=== PATIENT | female | born 1990 | race Caucasian/White ===

== ENCOUNTER 2016-06-14 09:13 | Outpatient (CLI) ==
[2016-03-05 21:27] VITALS: BMI 21.9
== END 2016-06-14 09:14 | disposition home or self-care (01) ==
LOC: LAB 09:13
PROVIDERS: ATTEND Emergency Medicine
DX: O20.0 Threatened abortion (principal)
CPT/HCPCS: 36415; 84702

== ENCOUNTER 2016-07-13 14:10 | Outpatient (CLI) ==
[2016-03-05 21:27] VITALS: BMI 21.9
== END 2016-07-13 14:11 | disposition home or self-care (01) ==
LOC: LAB 14:10
PROVIDERS: ATTEND Emergency Medicine
DX: J02.9 Acute pharyngitis, unspecified (principal)
CPT/HCPCS: 87651; 87880

== ENCOUNTER 2016-07-21 04:24 | Emergency (ER) ==
[2016-07-21 04:36] VITALS: BP 109/73; TEMP 98.4; BMI 22.6
--- NOTE | 2016-07-21 05:10 | ED.PDOC ---
General ED Provider: Dr. CAROL MENDOZA Chief Complaint: Respiratory Complaint Stated Complaint: sinus draiange, coughing, congestion, took z pack, still has problem,. in . Time Seen by Physician: 05:08 Mode of Arrival: Walk-In Information Source: Patient Primary Care Provider: GUSTAVO ALMANZA Nursing and Triage Documentation Reviewed and Agree: Yes Respiratory Complaint Exam - Respiratory Complaint/Exam Symptoms Are: Still present Timing: Constant Initial Severity: Mild Current Severity: Mild Location: Nose, Chest Character: Reports: Productive cough Aggravating: Reports: Allergens, URI Alleviating: Reports: None Associated Signs and Symptoms: Reports: URI, Nasal congestion, Sinus discomfort. Denies: Rapid breathing, Dyspnea, Fever, Chills, Chest pain, Pleuritic chest pain, Wheezing, Hemoptysis, Dizziness, Calf pain, Calf swelling , Edema, Hoarseness, Vomiting, Sore throat, Weight loss, Decreased oral intake, Increased thirst, Increased appetite, Increased urination Related History: Reports: Similar episode History of Healthcare-Acquired Pneumonia: No Related Surgical History: Reports: None Pulmonary Embolism Risk Factors: None Cardiac Risk Factors: Reports: None Pseudomonas Risk Factors: Reports: None Tuberculosis Risk Factors: Reports: None Status Asthmaticus Risk Factors: Reports: None Home Oxygen Use: No Recent Stress Test: No Recent Echo/LV Function: No Current Antibiotic Use: No Current Asthma Medication Use: No Respiratory Distress: None Inadequate Respiratory Effort: No Dysphagia Present: No JVD Present: No Retractions: Not Present Differential Diagnoses: URI Review of Systems - Review Of Systems Constitutional: Reports: Malaise, Weakness Eyes: Reports: No symptoms Ears, Nose, Mouth, Throat: Reports: Nose discharge Respiratory: Reports: Cough Cardiac: Reports: No symptoms GI: Reports: No symptoms : Reports: No symptoms Musculoskeletal: Reports: No symptoms Skin: Reports: No symptoms Neurological: Reports: No symptoms Endocrine: Reports: No symptoms Hematologic/Lymphatic: Reports: No symptoms All Other Systems: Reviewed and Negative Past Medical History - Past Medical History Previously Healthy: Yes Endocrine: Reports: None Cardiovascular: Reports: None Respiratory: Reports: None Hematological: Reports: None Gastrointestinal: Reports: None Genitourinary: Reports: UTI Neuro/Psych: Reports: None Musculoskeletal: Reports: None Cancer: Reports: None Last Menstrual Period: APRIL - Surgical History General Surgical History: Reports: Cholecystectomy - Family History Family History: Reports: Unknown - Social History Smoking Status: Current every day smoker, Heavy tobacco smoker Hx Substance Use: Yes (IN THE PAST) Alcohol Screening: None - Immunizations Tetanus Shot up to Date: Yes Physical Exam - Physical Exam Appearance: Well-appearing, No pain distress, Well-nourished Eyes: BENSON, EOMI, Conjunctiva clear ENT: Ears normal, Nose normal, Oropharynx normal Respiratory: Airway patent, Breath sounds clear, Breath sounds equal, Respirations nonlabored Cardiovascular: RRR, Pulses normal, No rub, No murmur GI/: Soft, Nontender, No masses, Bowel sounds normal, No Organomegaly Musculoskeletal: Normal strength, ROM intact, No edema, No calf tenderness Skin: Warm, Dry, Normal color Neurological: Sensation intact, Motor intact, Reflexes intact, Cranial nerves intact, Alert, Oriented Psychiatric: Affect appropriate, Mood appropriate Critical Care Note - Critical Care Note Total Time (mins): 0 Course - Course Vital Signs: Temp Pulse Resp BP Pulse Ox 07/21/16 04:28 98.4 F 80 20 109/73 99 Departure - Departure Time of Disposition: 05:12 Disposition: HOME SELF-CARE Discharge Problem: URTI (acute upper respiratory infection) Instructions: Upper Respiratory Infection (ED) Condition: Stable Pt referred to PMD for follow-up: No Additional Instructions: Increase hydration Claritin 10 po daily continue taking prenatals. Prescriptions: Loratadine [Claritin] 10 mg PO DAILY #10 tablet Allergies/Adverse Reactions: Allergies amoxicillin [Amoxicillin] Adverse Reaction (Verified 04/19/15 03:41) Home Medications: Ambulatory Orders Acetaminophen with Codeine [Tylenol #3 Tab] 1 tab PO BID PRN 07/21/16 Loratadine [Claritin] 10 mg PO DAILY #10 tablet 07/21/16 Vit W-Ca,Fe,FA(<1 mg) [ Vitamins] 1 each PO DAILY 07/21/16 Disposition Discussed With: Patient
[2016-07-21] MEDS ORDERED: CLARITIN PO ONE (05:30)
== END 2016-07-21 05:46 | disposition home or self-care (01) ==
LOC: ED 04:24
DX: J06.9 Acute upper respiratory infection, unspecified (principal); F17.210 Nicotine dependence, cigarettes, uncomplicated; Z33.1 Pregnant state, incidental
CPT/HCPCS: 99282

== ENCOUNTER 2016-10-01 15:36 | Emergency (ER) ==
[2016-10-01 15:50] VITALS: BP 100/67; TEMP 97.6; BMI 23.5
[2016-10-01] MEDS ORDERED: CITRATE OF MAGNESIA PO STA (15:56)
[2016-10-01] MEDS ORDERED: GLYCERIN SUPPOSITORY RC STA (15:58)
--- NOTE | 2016-10-01 16:00 | ED.PDOC ---
General ED Provider: Dr. CAROL MENDOZA Chief Complaint: Constipation Stated Complaint: Not had BM for 5 days, she is . Time Seen by Physician: 15:56 Mode of Arrival: Walk-In Information Source: Patient Primary Care Provider: GUSTAVO ALMANZA Nursing and Triage Documentation Reviewed and Agree: Yes GI Complaint Exam - Abdominal Pain Complaint/Exam Onset: Gradual (did not had BM for 5 days.) Symptoms Are: Still present Timing: Constant Initial Severity: Mild Current Severity: Mild Location of Pain: Diffuse Character: Reports: Aching Aggravating: Reports: None Alleviating: Reports: None Associated Signs and Symptoms: Reports: Constipation AAA Risk Factors: Reports: None Cardiac Risk Factors: Reports: None Ectopic Risk Factors: Reports: None Ovarian Torsion Risk Factors: Reports: None Surgical Obstruction Risk Factors: Reports: None Related Surgical History: Reports: None Patient Rh Status: Unknown Abdominal Findings: Present: None Differential Diagnoses: Constipation Review of Systems - Review Of Systems Constitutional: Reports: No symptoms Eyes: Reports: No symptoms Ears, Nose, Mouth, Throat: Reports: No symptoms Respiratory: Reports: No symptoms Cardiac: Reports: No symptoms GI: Reports: Abdominal pain (constipation) : Reports: No symptoms Musculoskeletal: Reports: No symptoms Skin: Reports: No symptoms Neurological: Reports: No symptoms Endocrine: Reports: No symptoms Hematologic/Lymphatic: Reports: No symptoms All Other Systems: Reviewed and Negative Past Medical History - Past Medical History Previously Healthy: Yes Endocrine: Reports: None Cardiovascular: Reports: None Respiratory: Reports: None Hematological: Reports: None Gastrointestinal: Reports: None Genitourinary: Reports: UTI Neuro/Psych: Reports: None Musculoskeletal: Reports: None Cancer: Reports: None Last Menstrual Period: apr - Surgical History General Surgical History: Reports: Cholecystectomy - Family History Family History: Reports: Unknown - Social History Smoking Status: Current some day smoker Smoking Cessation Counseling Time: > 10 min Hx Substance Use: No Alcohol Screening: None - Immunizations Tetanus Shot up to Date: Yes Physical Exam - Physical Exam Appearance: Well-appearing, No pain distress, Well-nourished Eyes: BENSON, EOMI, Conjunctiva clear ENT: Ears normal, Nose normal, Oropharynx normal Respiratory: Airway patent, Breath sounds clear, Breath sounds equal, Respirations nonlabored Cardiovascular: RRR, Pulses normal, No rub, No murmur GI/: Soft, Nontender, No masses, Bowel sounds normal, No Organomegaly Musculoskeletal: Normal strength, ROM intact, No edema, No calf tenderness Skin: Warm, Dry, Normal color Neurological: Sensation intact, Motor intact, Reflexes intact, Cranial nerves intact, Alert, Oriented Psychiatric: Affect appropriate, Mood appropriate Critical Care Note - Critical Care Note Total Time (mins): 0 Course - Course Orders, Labs, Meds: Orders Category Date Time Status Glycerin [Glycerin Suppository] MEDS 10/01/16 15:58 Discontinued 1 each RC ONCE STA Magnesium Citrate [Citrate of Magnesia] MEDS 10/01/16 15:56 Discontinued 10 oz PO ONCE STA Medications Discontinued Medications Generic Name Dose Route Start Last Admin Trade Name Freq PRN Reason Stop Dose Admin Glycerin 1 each 10/01/16 15:58 10/01/16 16:04 Glycerin Suppository RC 10/01/16 15:59 1 each ONCE STA Administration Magnesium Citrate 10 oz 10/01/16 15:56 10/01/16 16:04 Citrate Of Magnesia PO 10/01/16 15:57 10 oz ONCE STA Administration Vital Signs: Temp Pulse Resp BP Pulse Ox 10/01/16 15:37 97.6 F 114 H 16 100/67 95 Departure - Departure Time of Disposition: 16:02 Disposition: HOME SELF-CARE Discharge Problem: Constipation Instructions: Constipation (ED) Condition: Stable Pt referred to PMD for follow-up: Yes Additional Instructions: Increase Hydration High Fibre diet needs f/u with Obgyn Allergies/Adverse Reactions: Allergies amoxicillin [Amoxicillin] Adverse Reaction (Verified 10/01/16 15:48) Home Medications: Ambulatory Orders Vit W-Ca,Fe,FA(<1 mg) [ Vitamins] 1 each PO DAILY 07/21/16 Sertraline HCl 50 mg PO DAILY 10/01/16 Disposition Discussed With: Patient
== END 2016-10-01 17:11 | disposition home or self-care (01) ==
LOC: ED 15:36
DX: K59.00 Constipation, unspecified (principal); Z33.1 Pregnant state, incidental; F17.210 Nicotine dependence, cigarettes, uncomplicated
CPT/HCPCS: 99282

== ENCOUNTER 2016-12-08 16:33 | Outpatient (CLI) ==
[2016-12-08 18:05] LABS: HEMATOCRIT 34.4 % (37.0-47.0); HEMOGLOBIN 11.9 g/dl (12.0-16.0)
[2016-12-08 18:27] LABS: GLUCOSE 84 mg/dL (70-110)
== END 2016-12-08 16:34 | disposition home or self-care (01) ==
LOC: LAB 16:33
DX: Z34.90 Encounter for supervision of normal pregnancy, unspecified, unspecified trimester (principal)
CPT/HCPCS: 36415; 82947; 85014; 85018

== ENCOUNTER 2017-01-01 14:03 | Outpatient (CLI) ==
[2017-01-01 14:30] LABS: FLU INTERNAL QC INTERNAL QC VALID; RAPID FLU A NEGATIVE (NEGATIVE); RAPID FLU B NEGATIVE (NEGATIVE)
== END 2017-01-01 14:04 | disposition home or self-care (01) ==
LOC: LAB 14:03
PROVIDERS: ATTEND Internal Medicine
DX: Z20.828 Contact with and (suspected) exposure to other viral communicable diseases (principal)
CPT/HCPCS: 87804

== ENCOUNTER 2017-04-01 16:46 | Outpatient (CLI) | payer OTHER | END 2017-04-01 16:47 | disposition home or self-care (01) | LOC: LAB 16:46 | PROVIDERS: ATTEND Internal Medicine | DX: H10.9 Unspecified conjunctivitis (principal) | CPT/HCPCS: 87070 ==

== ENCOUNTER 2017-05-27 21:39 | Emergency (ER) ==
[2017-05-27 21:50] VITALS: BP 124/78; TEMP 97.6; BMI 24.6
[2017-05-27] MEDS ORDERED: ZOFRAN ODT PO STA (22:09)
--- NOTE | 2017-05-27 22:43 | ED.PDOC ---
General ED Provider: Dr. LAWRENCE KELLY Chief Complaint: Fall Stated Complaint: Aston is a 27 year old female who states she fell at home hitting the bathroom sink with her forehead. Boy friend states that she lost conciousness but not sure how long. 6 hour later she started having severe headache with nause but no vomiting. Denies any weakness or numnbess. Time Seen by Physician: 21:46 Mode of Arrival: Walk-In Information Source: Patient, Family Exam Limitations: No limitations Primary Care Provider[facility] Nursing and Triage Documentation Reviewed and Agree: Yes Reviewed sepsis parameters & appropriate labs ordered?: No System Inflammatory Response Syndrome: Not Applicable Sepsis Protocol: For patient's 13 years and over: Temp is 96.8 and below OR 101 and greater Pulse >90 BPM Resp >20/minute Acutely Altered Mental Status Are patient's symptoms suggestive of a new infection, such as: -Pneumonia -Skin, Soft Tissue -Endocarditis -UTI -Bone, Joint Infection -Implantable Device -Acute Abdominal Infection -Wound Infection -Meningitis -Blood Stream Catheter Infection -Unknown System Inflammatory Response Syndrome: Not Applicable Review of Systems - Review Of Systems Constitutional: Reports: No symptoms Eyes: Reports: Photophobia Ears, Nose, Mouth, Throat: Reports: No symptoms Respiratory: Reports: No symptoms Cardiac: Reports: No symptoms GI: Reports: Nausea : Reports: No symptoms Musculoskeletal: Reports: No symptoms Skin: Reports: No symptoms Neurological: Reports: Anxiety Endocrine: Reports: No symptoms Hematologic/Lymphatic: Reports: No symptoms All Other Systems: Reviewed and Negative Past Medical History - Past Medical History Previously Healthy: Yes Endocrine: Reports: None Cardiovascular: Reports: None Respiratory: Reports: None Hematological: Reports: None Gastrointestinal: Reports: None Genitourinary: Reports: UTI Neuro/Psych: Reports: None Musculoskeletal: Reports: None Cancer: Reports: None Last Menstrual Period: now - Surgical History General Surgical History: Reports: Cholecystectomy - Family History Family History: Reports: Unknown - Social History Smoking Status: Current some day smoker, Light tobacco smoker Hx Substance Use: No Alcohol Screening: None - Immunizations Tetanus Shot up to Date: No (unsure) Physical Exam - Physical Exam Appearance: Well-appearing, Well-nourished Pain Distress: Severe Eyes: BENSON, EOMI, Conjunctiva clear ENT: Ears normal, Nose normal, Oropharynx normal Neck: Supple Respiratory: Airway patent, Breath sounds clear, Breath sounds equal, Respirations nonlabored Cardiovascular: RRR, Pulses normal, No rub, No murmur GI/: Soft, Nontender, No masses, Bowel sounds normal, No Organomegaly Musculoskeletal: Normal strength, ROM intact, No edema, No calf tenderness Skin: Warm, Dry, Normal color Neurological: Sensation intact, Motor intact, Reflexes intact, Cranial nerves intact, Alert, Oriented Psychiatric: Anxious Interpretation - Radiology Interpretation Radiology Interpretation By: Radiologist Radiology Results: Negative Exam Interpreted: CT Scan (head) Critical Care Note - Critical Care Note Total Time (mins): 0 Course - Course Orders, Labs, Meds: Orders Category Date Time Status Ondansetron [Zofran Odt] MEDS 05/27/17 22:09 Discontinued 4 mg PO ONCE STA CT HEAD W/O CONTRAST Stat RADS 05/27/17 22:08 Completed Medications Discontinued Medications Generic Name Dose Route Start Last Admin Trade Name Freq PRN Reason Stop Dose Admin Ondansetron HCl 4 mg 05/27/17 22:09 05/27/17 22:20 Zofran Odt PO 05/27/17 22:10 4 mg ONCE STA Administration Vital Signs: Temp Pulse Resp BP Pulse Ox 05/27/17 21:41 97.6 F 80 20 124/78 97 Departure - Departure Time of Disposition: 23:01 Disposition: HOME SELF-CARE Discharge Problem: Head concussion Qualifiers: Encounter type: initial encounter Loss of consciousness presence/duration: with LOC of 30 min or less Qualified Code(s): S06.0X1A - Concussion with loss of consciousness of 30 minutes or less, initial encounter Instructions: Concussion (ED), Acute Headache (ED) Condition: Stable Pt referred to PMD for follow-up: Yes IPMP verified?: No Additional Instructions: Push fluids Follow up with PCP in 2-3 days Take Medications as prescribed Prescriptions: Ibuprofen [Motrin] 600 mg PO Q6H PRN #20 tablet PRN Reason: Analgesia Ondansetron HCl [Zofran Tab] 4 mg PO Q8H PRN #14 tablet PRN Reason: Nausea / Vomiting Allergies/Adverse Reactions: Allergies amoxicillin [Amoxicillin] Adverse Reaction (Verified 05/27/17 21:47) Hives Home Medications: Ambulatory Orders Ibuprofen [Motrin] 600 mg PO Q6H PRN #20 tablet 05/27/17 Ondansetron HCl [Zofran Tab] 4 mg PO Q8H PRN #14 tablet 05/27/17 Disposition Discussed With: Patient
--- NOTE | 2017-05-27 22:43 | CT ---
EXAM: CT brain without contrast HISTORY: Post traumatic frontal headache and loss of consciousness TECHNIQUE: CT of the brain without intravenous contrast FINDINGS: There is no acute hemorrhage midline shift or mass effect. No hydrocephalus or abnormal e xtra-axial fluid collection. No significant parenchymal attenuation abnormality. The bony cranium a ppears normal. The visualized paranasal sinuses are clear. Soft tissues without significant abnormali ty. IMPRESSION: 1. CT of the brain within normal limits.
== END 2017-05-27 23:17 | disposition home or self-care (01) ==
LOC: ED 21:39
DX: S06.0X1A Concussion with loss of consciousness of 30 minutes or less, initial encounter (principal); W19.XXXA Unspecified fall, initial encounter; Y92.002 Bathroom of unspecified non-institutional (private) residence as the place of occurrence of the external cause; F17.210 Nicotine dependence, cigarettes, uncomplicated
CPT/HCPCS: 99283

== ENCOUNTER 2017-08-21 16:09 | Outpatient (CLI) | payer OTHER | END 2017-08-21 16:10 | disposition left against medical advice (07) | LOC: AMBL 16:09 | PROVIDERS: ATTEND Emergency Medicine | DX: Z04.1 Encounter for examination and observation following transport accident (principal) ==

== ENCOUNTER 2017-10-15 18:04 | Emergency (ER) | payer OTHER ==
[2017-10-15 18:08] VITALS: TEMP 98.5
[2017-10-15 18:09] VITALS: BP 118/69; BMI 24.1
--- NOTE | 2017-10-15 18:28 | ED.PDOC ---
General ED Provider: Dr. HERMINIA DONALD Chief Complaint: Tooth Problem Stated Complaint: dental pain Time Seen by Physician: 18:00 Mode of Arrival: Walk-In Information Source: Patient Exam Limitations: No limitations [facility] Nursing and Triage Documentation Reviewed and Agree: Yes Does patient meet sepsis criteria?: Yes If yes, has appropriate treatment been initiated?: No System Inflammatory Response Syndrome: Not Applicable Sepsis Protocol: For patient's 13 years and over: Temp is 96.8 and below OR 101 and greater Pulse >90 BPM Resp >20/minute Acutely Altered Mental Status Are patient's symptoms suggestive of a new infection, such as: -Pneumonia -Skin, Soft Tissue -Endocarditis -UTI -Bone, Joint Infection -Implantable Device -Acute Abdominal Infection -Wound Infection -Meningitis -Blood Stream Catheter Infection -Unknown EENT Complaint Exam - Dental/Oral Complaint/Exam Mechanism of Injury: No known trauma Onset/Duration: 1 week Symptoms Are: Still present Timing: Intermittent Initial Severity: Moderate Current Severity: Moderate Character: Reports: Aching, Throbbing Aggravating: Reports: Heat, Cold, Chewing Alleviating: Reports: None Associated Signs and Symptoms: Denies: Swelling, Discharge, Fever, Foul odor, Foul taste in mouth Cardiac Risk Factors: Reports: None Dental/Oral Surgical History: Reports: None Tooth Findings: Present: Percussion tenderness, Gross caries, Dental fracture Cervical Lymphadenopathy Present: No Facial Swelling Present: No Bleeding Present: No Oropharynx Findings: Absent: Clots, Active bleeding Septal Hematoma: No Foreign Body Present: No Dysphagia Present: No Drooling Present: No Asymmetrical Tonsillar Swelling Present: No Uvula Midline: Yes Johanna-tonsillar Fluctuence: No Trismus Present: No Palatal Petechiae Present: No Scarlatinaform Rash Present: No Teeth Picture: 1 - broken Differential Diagnoses: Dental Caries, Fractured Tooth Review of Systems - Review Of Systems Constitutional: Reports: No symptoms Eyes: Reports: No symptoms Ears, Nose, Mouth, Throat: Reports: No symptoms Respiratory: Reports: No symptoms Cardiac: Reports: No symptoms GI: Reports: No symptoms : Reports: No symptoms Musculoskeletal: Reports: No symptoms Skin: Reports: No symptoms Neurological: Reports: No symptoms Endocrine: Reports: No symptoms Hematologic/Lymphatic: Reports: No symptoms All Other Systems: Reviewed and Negative Past Medical History - Past Medical History Previously Healthy: Yes Endocrine: Reports: None Cardiovascular: Reports: None Respiratory: Reports: None Hematological: Reports: None Gastrointestinal: Reports: None Genitourinary: Reports: UTI Neuro/Psych: Reports: None Musculoskeletal: Reports: None Cancer: Reports: None Last Menstrual Period: 2 days ago - Surgical History General Surgical History: Reports: Cholecystectomy - Family History Family History: Reports: Unknown - Social History Smoking Status: Current every day smoker Hx Substance Use: Yes ("drug use") Alcohol Screening: None Physical Exam - Physical Exam Appearance: Well-appearing, No pain distress, Well-nourished Eyes: BENSON, EOMI, Conjunctiva clear ENT: Ears normal, Nose normal, Oropharynx normal Respiratory: Airway patent, Breath sounds clear, Breath sounds equal, Respirations nonlabored Cardiovascular: RRR, Pulses normal, No rub, No murmur GI/: Soft, Nontender, No masses, Bowel sounds normal, No Organomegaly Musculoskeletal: Normal strength, ROM intact, No edema, No calf tenderness Skin: Warm, Dry, Normal color Neurological: Sensation intact, Motor intact, Reflexes intact, Cranial nerves intact, Alert, Oriented Psychiatric: Affect appropriate, Mood appropriate Critical Care Note - Critical Care Note Total Time (mins): 0 Course - Course Vital Signs: Temp Pulse Resp BP Pulse Ox 10/15/17 18:04 98.5 F 84 16 118/69 98 Departure - Departure Time of Disposition: 18:27 Disposition: HOME SELF-CARE Discharge Problem: Toothache Instructions: Toothache (ED) Condition: Good Pt referred to PMD for follow-up: Yes IPMP verified?: No Additional Instructions: Please call your Family Physician as soon as possible to schedule a follow-up appointment. Allergies/Adverse Reactions: Allergies amoxicillin [Amoxicillin] Adverse Reaction (Verified 10/15/17 18:08) Hives Home Medications: Ambulatory Orders 1 [No Reported Medications] 10/15/17
== END 2017-10-15 18:34 | disposition home or self-care (01) ==
LOC: ED 18:04
DX: K08.89 Other specified disorders of teeth and supporting structures (principal); K02.7 Dental root caries; S02.5XXA Fracture of tooth (traumatic), initial encounter for closed fracture; F17.210 Nicotine dependence, cigarettes, uncomplicated
CPT/HCPCS: 99282

== ENCOUNTER 2017-11-07 18:39 | Inpatient (IN) ==
[2017-11-07] MEDS ORDERED: ATIVAN 1 ML ONE (18:43)
[2017-11-07] MEDS ORDERED: SODIUM CHLORIDE 1,000 ML IV STA ×3 (18:49→21:08)
[2017-11-07 18:50] VITALS: BMI 22.4
--- NOTE | 2017-11-07 18:52 | ED.PDOC ---
General Stated Complaint: OVERDOSE Time Seen by Physician: 18:45 Mode of Arrival: Wheelchair Information Source: Family, Other Exam Limitations: No limitations Nursing and Triage Documentation Reviewed and Agree: Yes Does patient meet sepsis criteria?: No If yes, has appropriate treatment been initiated?: No System Inflammatory Response Syndrome: Not Applicable <ALISTAIRNONAHERMINIA - Last Filed: 11/07/17 18:50> Stated Complaint: Brought in with possible overdose of Drugs will not say what she took but family thinks its a combination of Bath salts and Methamphetamin. Apparently lost custody of her son to the father in a court hearing today. Family also lost custody to father of child. Patient has a history of Methamphetamine use. She was scheduled to go [facility]. <LAWRENCE KELLY - Last Filed: 11/07/17 22:29> ED Provider: Dr. LAWRENCE KELLY Chief Complaint: Overdose Primary Care Provider: [facility] Sepsis Protocol: For patient's 13 years and over: Temp is 96.8 and below OR 101 and greater Pulse >90 BPM Resp >20/minute Acutely Altered Mental Status Are patient's symptoms suggestive of a new infection, such as: -Pneumonia -Skin, Soft Tissue -Endocarditis -UTI -Bone, Joint Infection -Implantable Device -Acute Abdominal Infection -Wound Infection -Meningitis -Blood Stream Catheter Infection -Unknown Psychological Complaint Exam - Overdose/Toxic Exposure Complaint/Exam Patient Complains Of: Overdose (SUBSTANCE IS SAID TO BE CANNABIS ) Ingestion Occurred: OVER 2 DAYS Exposure Occurred: 2 DAYS ONGOING Ingestion: Toxic substance, Unknown (FOR MOST PARTS PT DOES NOT REMEMBER PT WAS NOT SEEN BY FAMILY X 2 DAYS) Treatment Prior To Arrival: None Associated Signs And Symptoms: Reports: Agitation. Denies: AMS, Seizure, Diaphoresis, Chest pain, Palpitations, Cyanosis, Short of air, Cough, Vomiting, Drooling, Intentional ingestion, Unintentional overdose, Pediatric ingestion Related History: Reports: Similar episode Completed Suicide Risk Factors: (SUBSTANCE ABUSE ) Gag Reflex Present: Yes Inability To Swallow Present: No Drooling Present: No Glascow Coma Scale (see protocol): 15 WALKING AGITATED Mydriasis Present: No Nystagmus Present: No Speech: Present: Normal findings Aphasia: Present: None Gait: Present: Normal Patient Uncooperative For Exam: Yes Mood: Present: Depressed, Angry, Anxious Thought Process: Present: Illogical Insight: Present: Poor Memory: Intact Judgement: Impaired Danger To Others: No Patient Medically Stable For: Psych evaluation Differential Diagnoses: Depression, Intentional Drug OD Quality Indicator For Non-Traumatic Chest Pain/Syncope: EKG Performed <ODILONHERMINIA - Last Filed: 11/07/17 18:50> - Substance Abuse/Use Complaint/Exam Patient Complains Of Substance Abuse Of: Amphetamines, Marijuana, Other ( unknown ) Onset/Duration: unknown Abuse Began: Unknown Increased Use Since: Recent stress of custody fight Initial Severity: Severe Current Severity: Severe Character: Present: Manic, Depressed, Fearful, Anxious, Angry, Frustrated Aggravating: Reports: Recent stress Associated Signs And Symptoms: Reports: Sleep disturbance, Agitated Related History: Reports: Prior psych admission, Prior abuse counseling, Prior abuse admission Possible Multi Drug Ingestion: Yes Last Used Alcohol: unknown Last Used Drugs: today unknown what time Completed Suicide Risk Factors: None Patient Accompanied By: Family Patient In Custody Of Police: No Social Withdrawal Present: No Social Isolation Present: No Prior Suicide Attempt: Yes Injury From Prior Suicide Attempt: No Patient Uncooperative For Exam: No Mood: Present: Depressed, Angry, Agitated Appearance: Present: Unkempt Thought Process: Present: Illogical Insight: Present: Poor Memory: Intact Judgement: Impaired Danger To Others: Yes Patient Medically Stable For: Psych evaluation Differential Diagnoses: Drug Abuse, Drug Withdrawal, Anxiety, Bipolar Disorder, Depression, Acute Psychosis Quality Indicator For Non-Traumatic Chest Pain/Syncope: EKG Performed <ULISSESAIRLAWRENCE - Last Filed: 11/07/17 22:29> Review of Systems - Review Of Systems Constitutional: Reports: No symptoms Eyes: Reports: No symptoms Ears, Nose, Mouth, Throat: Reports: No symptoms Respiratory: Reports: No symptoms Cardiac: Reports: No symptoms GI: Reports: No symptoms : Reports: No symptoms Musculoskeletal: Reports: No symptoms Skin: Reports: No symptoms Neurological: Reports: Emotional problems Endocrine: Reports: No symptoms Hematologic/Lymphatic: Reports: No symptoms All Other Systems: Reviewed and Negative <HERMINIA DONALD - Last Filed: 11/07/17 18:50> Past Medical History - Past Medical History Previously Healthy: Yes Endocrine: Reports: None Cardiovascular: Reports: None Respiratory: Reports: None Hematological: Reports: None Gastrointestinal: Reports: None Genitourinary: Reports: UTI Neuro/Psych: Reports: None Musculoskeletal: Reports: None Cancer: Reports: None Last Menstrual Period: unknown - Surgical History General Surgical History: Reports: Cholecystectomy - Family History Family History: Reports: Unknown - Social History Smoking Status: Current every day smoker Hx Substance Use: Yes Alcohol Screening: None <ODILONHERMINIA Last Filed: 11/07/17 18:50> - Past Medical History Neuro/Psych: Reports: Depression Other Pertinent Past Medical History: Drug abuse - Social History Lives: With family <LAWRENCE KELLY Last Filed: 11/07/17 22:29> Physical Exam - Physical Exam Appearance: Ill-appearing Ill-appearing: Moderate Pain Distress: Mild Eyes: BENSON, EOMI, Conjunctiva clear ENT: Ears normal, Nose normal, Oropharynx normal Respiratory: Airway patent, Breath sounds clear, Breath sounds equal, Respirations nonlabored Cardiovascular: Tachycardia GI/: Soft, Nontender, No masses, Bowel sounds normal, No Organomegaly Musculoskeletal: Normal strength, ROM intact, No edema, No calf tenderness Skin: Warm, Dry, Normal color Neurological: Sensation intact, Motor intact, Reflexes intact, Cranial nerves intact, Alert, Oriented Psychiatric: Anxious, Depressed <ODILONHERMINIA Last Filed: 11/07/17 18:50> Interpretation - Medical Field Representative Rate: Normal Rhythm: Sinus Ectopy: None - EKG Interpretation Time of EKG #1: 18:46 Rate: Normal Rhythm: Sinus Ectopy: None [place]: NL ST Segment: Normal Interpretation: Normal sinus Rhythm with Sinus Arrythmia. <LAWRENCE KELLY Last Filed: 11/07/17 22:29> Re-Evaluation - Re-Evaluation Time of Re-Evaluation: 22:18 Status: Improved (after Ativan and Hadlol she was much more cooperative ) <LAWRENCE KELLY Last Filed: 11/07/17 22:29> Physician Notification - Case Discussed Physician Notified: LETICIA Time of Notification: 19:00 <HERMINIA DONALD - Last Filed: 11/07/17 18:50> Critical Care Note - Critical Care Note Total Time (mins): 0 <HERMINIA DONALD Last Filed: 11/07/17 18:50> - Critical Care Note Total Time (mins): 30 <LAWRENCE KELLY Last Filed: 11/07/17 22:29> Course - Course Hematology/Chemistry: 11/07/17 18:46 11/07/17 18:46 <LAWRENCE KELLY - Last Filed: 11/07/17 22:29> - Course Orders, Labs, Meds: Lab Review 11/07/17 11/07/17 11/07/17 18:46 18:46 18:46 WBC 9.14 RBC 4.58 Hgb 13.1 Hct 38.1 MCV 83.2 MCH 28.6 MCHC 34.4 RDW Coeff of Otto 13.0 Plt Count 314 Immature Gran % (Auto) 0.2 Neut % (Auto) 65.6 Lymph % (Auto) 27.7 [place] % (Auto) 5.4 Eos % (Auto) 0.8 Baso % (Auto) 0.3 Immature Gran # (Auto) 0.0 Neut # (Auto) 6.0 Lymph # (Auto) 2.5 [place] # (Auto) 0.5 Eos # (Auto) 0.1 Baso # (Auto) 0.0 Sodium 139 Potassium 3.0 L Chloride 105 Carbon Dioxide 22 Anion Gap 15.0 BUN 12 Creatinine 0.81 Estimated GFR (MDRD) 85.00 BUN/Creatinine Ratio 14.81 Glucose 120 H Calcium 9.5 Total Bilirubin 0.8 AST 16 ALT 19 Alkaline Phosphatase 96 Total Protein 7.9 Albumin 4.2 Globulin 3.7 Albumin/Globulin Ratio 1.14 Serum , Qual Negative Urine Color Urine Clarity Urine pH Ur Specific [place] Urine Protein Urine Glucose (UA) Urine Ketones Urine Blood Urine Nitrite Urine Bilirubin Urine Urobilinogen Ur Leukocyte Esterase Urine Microscopic WBC Ur Squamous Epith Cells Urine Bacteria Salicylate Level mg/dL < 5.0 Urine Opiates Screen Ur Oxycodone Screen Urine Methadone Screen Ur Propoxyphene Screen Acetaminophen < 3 L Ur Barbiturates Screen U Tricyclic Antidepress Ur Phencyclidine Scrn Ur Amphetamine Screen U Methamphetamines Scrn U Benzodiazepines Scrn Urine Cocaine Screen U Cannabinoids Screen Plasma/Serum Alcohol < 10.0 11/07/17 11/07/17 19:37 19:37 WBC RBC Hgb Hct MCV MCH MCHC RDW Coeff of [place] Plt Count Immature Gran % (Auto) Neut % (Auto) Lymph % (Auto) [place] % (Auto) Eos % (Auto) Baso % (Auto) Immature Gran # (Auto) Neut # (Auto) Lymph # (Auto) [place] # (Auto) Eos # (Auto) Baso # (Auto) Sodium Potassium Chloride Carbon Dioxide Anion Gap BUN Creatinine Estimated GFR (MDRD) BUN/Creatinine Ratio Glucose Calcium Total Bilirubin AST ALT Alkaline Phosphatase Total Protein Albumin Globulin Albumin/Globulin Ratio Serum , Qual Urine Color Dark Urine Clarity Cloudy Urine pH 6.0 Ur Specific [place] 1.020 Urine Protein Negative Urine Glucose (UA) Negative Urine Ketones Negative Urine Blood Negative Urine Nitrite Positive Urine Bilirubin Negative Urine Urobilinogen 0.2 Ur Leukocyte Esterase Negative Urine Microscopic WBC 5-10 Ur Squamous Epith Cells 2-5 Urine Bacteria 4+ Salicylate Level mg/dL Urine Opiates Screen Negative Ur Oxycodone Screen Negative Urine Methadone Screen Negative Ur Propoxyphene Screen Negative Acetaminophen Ur Barbiturates Screen Negative U Tricyclic Antidepress Negative Ur Phencyclidine Scrn Negative Ur Amphetamine Screen Positive U Methamphetamines Scrn Positive U Benzodiazepines Scrn Negative Urine Cocaine Screen Negative U Cannabinoids Screen Positive Plasma/Serum Alcohol Orders Category Date Time Status EKG-(ED ONLY) Stat CARDIO 11/07/17 18:49 Completed NEBULIZER TREATMENT Routine CARDIO 11/07/17 22:10 Ordered OXYGEN Routine CARDIO 11/07/17 22:01 Ordered ACTIVITY .BR with BRP CARE 11/07/17 22:01 Ordered INTAKE & OUTPUT Q8HR CARE 11/07/17 22:01 Ordered RESTRAINT VITAL SIGNS Q2HR CARE 11/07/17 19:48 Active Straight [STRAIGHT CATH INSERTION] ONCE CARE 11/07/17 19:16 Active VITAL SIGNS Q4HR CARE 11/07/17 22:01 Ordered REGULAR DIET DIETARY 11/07/17 Breakfast Ordered ED MAINTENANCE MILLWRIGHT APPLIED ONCE EMERGENCY 11/07/17 18:49 Active ED IV/MEDIPORT/POWERPORT .ONCE EMERGENCY 11/07/17 18:49 Active ED RESTRAINTS .ONCE EMERGENCY 11/07/17 19:48 Active ACETAMINOPHEN Stat LAB 11/07/17 18:46 Completed BLOOD ALCOHOL Stat LAB 11/07/17 18:46 Completed CBC W/ AUTO DIFF DAILY@0600 LAB 11/08/17 06:00 Ordered CBC W/ AUTO DIFF DAILY@0600 LAB 11/09/17 06:00 Ordered CBC W/ AUTO DIFF Stat LAB 11/07/17 18:46 Completed COMPREHENSIVE METABOLIC PANEL DAILY@0600 LAB 11/08/17 06:00 Ordered COMPREHENSIVE METABOLIC PANEL DAILY@0600 LAB 11/09/17 06:00 Ordered COMPREHENSIVE METABOLIC PANEL Stat LAB 11/07/17 18:46 Completed DRUG SCREEN, URINE, RAPID Stat LAB 11/07/17 19:37 Completed SALICYLATE Stat LAB 11/07/17 18:46 Completed SERUM Stat LAB 11/07/17 18:46 Completed URINALYSIS C & S IF INDICATED Stat LAB 11/07/17 19:37 Completed URINE CULTURE Stat LAB 11/07/17 19:37 Received 0.9 % Sodium Chloride [Saline Flush] MEDS 11/07/17 18:49 Ordered 1 syr IVF PRN PRN Acetaminophen [Tylenol] MEDS 11/07/17 22:01 Ordered 650 mg PO Q4H PRN Haloperidol Lactate [Haldol] MEDS 11/07/17 19:02 Discontinued 5 mg .ROUTE .STK-MED ONE Ipratropium/Albuterol Neb [Duoneb] MEDS 11/07/17 22:01 Ordered 1 vial NEB RTQ8H PRN Lorazepam [Ativan] MEDS 11/07/17 19:26 Discontinued 1 mg IM ONCE STA Lorazepam [Ativan] MEDS 11/07/17 22:01 Ordered 2 mg IVP ONCE PRN Lorazepam [Ativan] 1 ml MEDS 11/07/17 18:43 Discontinued .ROUTE .STK-MED Ondansetron HCl/Pf [Zofran 4 mg/2 ml] MEDS 11/07/17 22:01 Ordered 4 mg IVP Q6H PRN Sodium Chloride 0.9% [Sodium Chloride] 1,000 ml MEDS 11/07/17 21:06 Active IV 125 mls/hr Sodium Chloride 0.9% [Sodium Chloride] 1,000 ml MEDS 11/07/17 22:30 Ordered IV 125 mls/hr Sodium Chloride 0.9% [Sodium Chloride] 1,000 ml MEDS 11/07/17 18:49 Discontinued IV BOLUS Sodium Chloride 0.9% [Sodium Chloride] 1,000 ml MEDS 11/07/17 21:08 Discontinued IV BOLUS Ziprasidone Mesylate [Geodon] MEDS 11/07/17 22:01 Ordered 10 mg IM Q4H PRN Ziprasidone Mesylate [Geodon] MEDS 11/07/17 19:15 Discontinued 20 mg IM ONCE STA RESUSCITATION STATUS Routine OTHERS 11/07/17 22:01 Ordered Medications Generic Name Dose Route Start Last Admin Trade Name Freq PRN Reason Stop Dose Admin Acetaminophen 650 mg 11/07/17 22:01 Tylenol PO Q4H PRN headache or pain Albuterol/Ipratropium 1 vial 11/07/17 22:01 Duoneb NEB RTQ8H PRN Wheezing Sodium Chloride 1,000 mls @ 125 mls/hr 11/07/17 21:06 11/07/17 21:10 Sodium Chloride IV 11/08/17 05:05 125 mls/hr .Q8H STA Administration Sodium Chloride 1,000 mls @ 125 mls/hr 11/07/17 22:30 Sodium Chloride IV .Q8H JOSE ENRIQUE Lorazepam 2 mg 11/07/17 22:01 Ativan IVP ONCE PRN Agitation Ondansetron HCl 4 mg 11/07/17 22:01 Zofran 4 Mg/2 Ml IVP Q6H PRN Nausea / Vomiting Sodium Chloride 1 syr 11/07/17 18:49 Saline Flush IVF PRN PRN To flush IV Ziprasidone 10 mg 11/07/17 22:01 Geodon IM Q4H PRN Agitation Discontinued Medications Generic Name Dose Route Start Last Admin Trade Name Freq PRN Reason Stop Dose Admin Sodium Chloride 1,000 mls @ 1,000 mls/hr 11/07/17 18:49 11/07/17 19:27 Sodium Chloride IV 11/07/17 19:48 1,000 mls/hr BOLUS STA Administration Sodium Chloride 1,000 mls @ 1,000 mls/hr 11/07/17 21:08 11/07/17 20:09 Sodium Chloride IV 11/07/17 22:07 1,000 mls/hr BOLUS STA Administration Lorazepam 1 mg 11/07/17 19:26 11/07/17 19:27 Ativan IM 11/07/17 19:27 1 mg ONCE STA Administration Ziprasidone 20 mg 11/07/17 19:15 Geodon IM 11/07/17 19:16 ONCE STA Vital Signs: Temp Pulse Resp BP Pulse Ox 11/07/17 21:37 97.9 F 71 18 124/84 98 11/07/17 21:07 97.9 F 74 16 107/73 99 11/07/17 20:24 67 15 105/73 100 11/07/17 20:14 69 114/75 100 11/07/17 19:55 97.9 F 103 H 20 115/81 98 11/07/17 18:40 98.5 F 89 22 139/99 H 97 Departure <HERMINIA DONALD - Last Filed: 11/07/17 18:50> - Departure Time of Disposition: 22:27 Pt referred to PMD for follow-up: Yes IPMP verified?: No <LAWRENCE KELLY - Last Filed: 11/07/17 22:29> - Departure Disposition: ADMITTED INPATIENT Discharge Problem: Drug overdose Condition: Serious Allergies/Adverse Reactions: Allergies amoxicillin [Amoxicillin] Adverse Reaction (Verified 10/15/17 18:08) Hives Home Medications: Ambulatory Orders Hydrocodone/Acetaminophen [[place] 5-325 Tablet] 1 each PO Q6HR PRN #14 tablet 12/25
[2017-11-07] MEDS ORDERED: HALDOL ONE (19:02)
[2017-11-07] MEDS ORDERED: GEODON IM STA (19:15)
[2017-11-07] MEDS ORDERED: ATIVAN IM STA (19:26)
[2017-11-07] MEDS ORDERED: DUONEB NEB PRN (22:01)
[2017-11-07] MEDS ORDERED: ATIVAN IVP PRN (22:01)
[2017-11-07] MEDS ORDERED: TYLENOL PO PRN (22:01)
[2017-11-07] MEDS ORDERED: ZOFRAN 4 MG/2 ML IVP PRN (22:01)
[2017-11-07] MEDS ORDERED: GEODON IM PRN (22:01)
[2017-11-07] MEDS ORDERED: SODIUM CHLORIDE 1,000 ML IV SCH (22:30)
[2017-11-07] MEDS ORDERED: K-DUR PO STA (22:58)
[2017-11-07] MEDS ORDERED: SODIUM CHLORIDE 0.9%-KCL 20 MEQ 1,000 ML IV STA (23:00)
[2017-11-08 05:50] VITALS: BP 98/62; TEMP 97.5
--- NOTE | 2017-11-09 14:00 | SSS ---
DATE OF SERVICE: 11/08/17 REASON FOR ADMISSION: Anxiety,Depression and change in mental status HISTORY OF PRESENT ILLNESS: This is a 27 year old female who has been having some issues at home. She was feeling stressed out came from the [facility] with the friend and found hysterical. The patient under influence of unknown substance, resistive. Yells out and states that she doesn't want to . She was brought to the emergency room by the family. Dr. Lopez saw the patient. WBC was normal. Chemistry Potassium 3.0. Urine 4+ bacteria, Leukocyte esterase negative. Drug screen was positive for the marijuana, amphetamine and methamphetamine. There was a question of taking "bath salts". Dr. Lopez has given her Ativan 2-3mg, breathing treatment as she was wheezing, Geodon 30mg. The patient been lethargic at that time and being evaluated for the placement. At that time the patient being admitted to the hospital inpatient for the treatment. REVIEW OF SYSTEMS: CONSTITUTIONAL: No night sweats. No fatigue, malaise, lethargy. No fever or chills. HEENT: Eyes: No visual changes. No eye pain. No eye discharge. ENT: No runny nose. No epistaxis. No sinus pain. No sore throat. No odynophagia. No ear pain. No congestion. RESPIRATORY: No cough, no congestion. No hemoptysis. No shortness of breath. CARDIOVASCULAR: No angina symptoms. No CHF symptoms. No atypical chest pain for CAD. No palpitations. No orthopnea. GASTROINTESTINAL: No abdominal pain. No nausea or vomiting. No diarrhea or constipation. No hematemesis. No hematochezia. GENITOURINARY: No dysuria. No hematuria. No obstructive symptoms. No discharge. No pain. No significant abnormal bleeding. MUSCULOSKELETAL: No musculoskeletal pain. No joint swelling. NEUROLOGICAL: Awake, alert, oriented to time, place and person. No headache. No neck pain. No syncope. No seizures. No dizziness. PSYCHIATRIC: Anxious. Depression. No suicidal thoughts. No homicidal thoughts. Change in mental status, possible substance use. SKIN: No rash. No lesions. No wounds. ENDOCRINE: No unexplained weight loss. No weight gain. HEMATOLOGIC/LYMPHATIC: No anemia. No purpura. No petechiae. No prolonged or excessive bleeding. No palpable lymph nodes. PAST HISTORY: Migraines Anxiety Depression Bipolar Substance use disorder Cholecystectomy PERSONAL/FAMILY HISTORY/SOCIAL HISTORY: The patient does smoke and no alcohol. Substance use problems. Family history is significant for the leukemia and hypertension. PHYSICAL EXAMINATION: GENERAL: By the time I seeing the patient the patient responses to the verbal stimuli and goes back sleep. Very unkept. VITAL SIGNS: Blood pressure 90/62, respiratory rate 16, heart rate 67, temperature 97.5 with saturation 95%. HEENT: Head normocephalic, atraumatic. Eyes: Extraocular muscles are intact. Pupils are equal, round and reactive to light and accommodation. Ears: No lesions. Nose appeared normal. Throat: No exudate or erythema. Mucosa dry. NECK: Supple. No JVD, no carotid bruit. No lymphadenopathy or thyromegaly. LUNGS: Decreased and clear to auscultation. Percussion note normal. Chest symmetrical. HEART: S1, S2, no S3. No murmurs. No cyanosis or clubbing. No ascites. Pulses: Dorsalis pedis and posterior tibial pulses +1 to +2 both sides. ABDOMEN: Soft. Nontender. Bowel sounds active. No CVA tenderness. No mass felt. EXTREMITIES: No edema. Full range of motion of all extremities, equal. NEUROLOGIC: No focal deficit. Cranial nerves II through XII are grossly intact. No headache, no double vision or headache. SKIN: Not dry. Intact. Turgor - normal. LYMPHATIC: No palpable lymph nodes/no lymphedema. MUSCULOSKELETAL: Normal joints with no swelling. Muscle tone is normal. ALLERGIES: Amoxicillin MEDICATIONS: None LABS/EKG'S/X-RAY/ECHO/ABG: Sodium 140, potassium 3.9, chloride 112, bicarb 24, BUN 7, creatinine 0.67, glucose 80, WBC 9.14, hgb 13.1, hct 38.1, plt count 314. PROGRESS NOTES: See EMR. DIAGNOSES: 1. Polysubstance use 2. Hypokalemia which is resolved 3. Depression 4. Anxiety 5. Bipolar disorder RECOMMENDATIONS/PLAN: 1. Discharge the patient to the behavioral center, [place] admission, the patient's family is taking her. TIME SPENT: More than [address] [facility]
== END 2017-11-08 06:38 | disposition other institution (70) | DRG 897 ==
LOC: ED 18:39 → SCU 11-08 00:25
PROVIDERS: ADMIT Emergency Medicine; ATTEND Emergency Medicine
DX: F19.90 Other psychoactive substance use, unspecified, uncomplicated (principal); F41.8 Other specified anxiety disorders; F31.9 Bipolar disorder, unspecified; E87.6 Hypokalemia; R53.83 Other fatigue; R45.1 Restlessness and agitation; Z72.0 Tobacco use
CPT/HCPCS: 36415; 80053; 80306; 80307; 81001; 84703; 85025; 87086; 87186; 93005; 93010; 96361; 96372; 96374; 96375; 99285

== ENCOUNTER 2018-01-18 22:26 | Emergency (ER) ==
[2018-01-18 22:45] VITALS: BP 131/89; TEMP 97.9; BMI 23.7
[2018-01-18 23:24] LABS: URINE PREGNANCY TEST NEGATIVE (NEGATIVE)
--- NOTE | 2018-01-19 00:12 | CT ---
EXAM: CT head without contrast 01/18/2018. Sagittal and coronal reformatted images obtained HISTORY: Posterior scalp lesion COMPARISON: 05/27/2017 FINDINGS: There is no evidence of intracranial hemorrhage. The midline is maintained. There is no h ydrocephalus. No cerebellar tonsillar ectopia. Evaluation of the calvarium shows no fracture. Th e mastoid air cells are normally pneumatized. IMPRESSION: No acute intracranial abnormality.
--- NOTE | 2018-01-19 00:27 | ED.PDOC ---
General ED Provider: Dr. NATALIA MCNALLY-ER Chief Complaint: Headache Stated Complaint: rashid got a lump on my head Time Seen by Physician: 22:40 Mode of Arrival: Walk-In Information Source: Patient Exam Limitations: No limitations Primary Care Provider: STAR VERDUGO Nursing and Triage Documentation Reviewed and Agree: Yes Does patient meet sepsis criteria?: No System Inflammatory Response Syndrome: Not Applicable Sepsis Protocol: For patient's 13 years and over: Temp is 96.8 and below OR 101 and greater Pulse >90 BPM Resp >20/minute Acutely Altered Mental Status Are patient's symptoms suggestive of a new infection, such as: -Pneumonia -Skin, Soft Tissue -Endocarditis -UTI -Bone, Joint Infection -Implantable Device -Acute Abdominal Infection -Wound Infection -Meningitis -Blood Stream Catheter Infection -Unknown Skin Complaint Exam - Skin/Soft Tissue Complaint/Exam Onset/Duration: one week Symptoms Are: Still present Timing: Constant Initial Severity: Mild Current Severity: Mild Location: posterior scalp Character: Reports: Swelling, Painful Aggravating: Reports: None Alleviating: Reports: None Associated Signs and Symptoms: Reports: Tenderness Related Surgical History: Reports: None Recent Exposure to Others w/Similar Symptoms: No Skin Findings: Present: Skin lesion Joint Tenderness Present: No Differential Diagnoses: Other Review of Systems - Review Of Systems Constitutional: Reports: No symptoms Eyes: Reports: No symptoms Ears, Nose, Mouth, Throat: Reports: No symptoms Respiratory: Reports: No symptoms Cardiac: Reports: No symptoms GI: Reports: No symptoms : Reports: No symptoms Musculoskeletal: Reports: No symptoms Skin: Reports: Lumps Neurological: Reports: No symptoms Endocrine: Reports: No symptoms Hematologic/Lymphatic: Reports: No symptoms All Other Systems: Reviewed and Negative Past Medical History - Past Medical History Previously Healthy: Yes Endocrine: Reports: None Cardiovascular: Reports: None Respiratory: Reports: None Hematological: Reports: None Gastrointestinal: Reports: None Genitourinary: Reports: UTI Neuro/Psych: Reports: Depression Musculoskeletal: Reports: None Cancer: Reports: None Last Menstrual Period: 12/24/17 Other Pertinent Past Medical History: Drug abuse - Surgical History General Surgical History: Reports: Cholecystectomy - Family History Family History: Reports: Unknown - Social History Smoking Status: Current every day smoker, Heavy tobacco smoker Hx Substance Use: Yes Alcohol Screening: None - Immunizations Tetanus Shot up to Date: Yes Physical Exam - Physical Exam Appearance: Well-appearing, No pain distress, Well-nourished Pain Distress: Mild Eyes: BENSON, EOMI, Conjunctiva clear ENT: Ears normal Neck: Supple Respiratory: Airway patent, Breath sounds clear, Breath sounds equal, Respirations nonlabored Cardiovascular: RRR, Pulses normal, No rub, No murmur GI/: Soft, Nontender, No masses, Bowel sounds normal, No Organomegaly Musculoskeletal: Normal strength, ROM intact, No edema, No calf tenderness Skin: Warm, Dry, Normal color Neurological: Sensation intact, Motor intact, Reflexes intact, Cranial nerves intact, Alert, Oriented Psychiatric: Affect appropriate, Mood appropriate Interpretation - Radiology Interpretation Radiology Interpretation By: Radiologist Radiology Results: Negative Exam Interpreted: CT Scan Critical Care Note - Critical Care Note Total Time (mins): 0 Course - Course Orders, Labs, Meds: Lab Review 01/18/18 23:05 Urine Test Negative Orders Category Date Time Status URINE Stat LAB 01/18/18 23:[address] HEAD W/O CONTRAST Stat RADS 01/18/18 23:03 Completed Vital Signs: Temp Pulse Resp BP Pulse Ox 01/18/18 22:35 97.9 F 95 H 18 131/89 99 Departure - Departure Time of Disposition: 00:26 Disposition: HOME SELF-CARE Discharge Problem: Scalp cyst Instructions: Cyst (ED) Condition: Good Pt referred to PMD for follow-up: Yes IPMP verified?: No Additional Instructions: minocin 50mg bid x 7 days , toradol 10mg qid prn pain #16--heat--f/u wtih pcp Allergies/Adverse Reactions: Allergies amoxicillin [Amoxicillin] Adverse Reaction (Verified 01/18/18 22:44) Hives Home Medications: Ambulatory Orders 1 [No Reported Medications] 01/18/18 Disposition Discussed With: Patient, Family
== END 2018-01-19 00:33 | disposition home or self-care (01) ==
LOC: ED 22:35
DX: L72.3 Sebaceous cyst (principal); F17.210 Nicotine dependence, cigarettes, uncomplicated
CPT/HCPCS: 81025; 99283

== ENCOUNTER 2018-05-09 20:05 | Emergency (ER) | payer MEDICAID, OTHER ==
[2018-05-09 20:29] VITALS: BP 131/86; TEMP 98.7; BMI 22.4
--- NOTE | 2018-05-10 00:23 | ED.PDOC ---
General ED Provider: Dr. LAWRENCE KELLY Chief Complaint: Psychiatric Complaint Stated Complaint: patient checked herself out of rehab went and used meth x 1, Now want to go to another rehab in [facility]. Denies any suicidal Ideation. Time Seen by Physician: 20:30 Mode of Arrival: Walk-In Information Source: Patient Exam Limitations: No limitations Primary Care Provider: STAR VERDUGO Nursing and Triage Documentation Reviewed and Agree: Yes Does patient meet sepsis criteria?: No System Inflammatory Response Syndrome: Not Applicable Sepsis Protocol: For patient's 13 years and over: Temp is 96.8 and below OR 101 and greater Pulse >90 BPM Resp >20/minute Acutely Altered Mental Status Are patient's symptoms suggestive of a new infection, such as: -Pneumonia -Skin, Soft Tissue -Endocarditis -UTI -Bone, Joint Infection -Implantable Device -Acute Abdominal Infection -Wound Infection -Meningitis -Blood Stream Catheter Infection -Unknown Review of Systems - Review Of Systems Constitutional: Reports: No symptoms Eyes: Reports: No symptoms Ears, Nose, Mouth, Throat: Reports: No symptoms Respiratory: Reports: No symptoms Cardiac: Reports: No symptoms GI: Reports: No symptoms : Reports: No symptoms Musculoskeletal: Reports: No symptoms Skin: Reports: No symptoms Neurological: Reports: Anxiety, Depressed, Emotional problems, Headache Endocrine: Reports: No symptoms Hematologic/Lymphatic: Reports: No symptoms All Other Systems: Reviewed and Negative Past Medical History - Past Medical History Previously Healthy: Yes Endocrine: Reports: None Cardiovascular: Reports: None Respiratory: Reports: None Hematological: Reports: None Gastrointestinal: Reports: None Genitourinary: Reports: UTI Neuro/Psych: Reports: Anxiety, Depression Musculoskeletal: Reports: None Cancer: Reports: None Last Menstrual Period: LAST WEEK Other Pertinent Past Medical History: Drug abuse - Surgical History General Surgical History: Reports: Cholecystectomy - Family History Family History: Reports: Unknown - Social History Smoking Status: Current every day smoker, Light tobacco smoker Hx Substance Use: Yes (Methamphea) Alcohol Screening: None - Immunizations Tetanus Shot up to Date: Yes Physical Exam - Physical Exam Appearance: Well-appearing, No pain distress, Well-nourished Eyes: BENSON, EOMI, Conjunctiva clear ENT: Ears normal, Nose normal, Oropharynx normal Respiratory: Airway patent, Breath sounds clear, Breath sounds equal, Respirations nonlabored Cardiovascular: RRR, Pulses normal, No rub, No murmur GI/: Soft, Nontender, No masses, Bowel sounds normal, No Organomegaly Musculoskeletal: Normal strength, ROM intact, No edema, No calf tenderness Skin: Warm, Dry, Normal color Neurological: Sensation intact, Motor intact, Reflexes intact, Cranial nerves intact, Alert, Oriented Psychiatric: Anxious, Depressed Critical Care Note - Critical Care Note Total Time (mins): 0 Comments: counsellor seen patient . She is not suicidal. Will go home with aunt in the morning. Will continue to arrange for outpatient drug rehab. Course - Course Orders, Labs, Meds: Lab Review 05/10/18 05/10/18 00:00 00:00 Urine Test Negative Urine Opiates Screen Negative Ur Oxycodone Screen Negative Urine Methadone Screen Negative Ur Propoxyphene Screen Negative Ur Barbiturates Screen Negative U Tricyclic Antidepress Negative Ur Phencyclidine Scrn Negative Ur Amphetamine Screen Positive U Methamphetamines Scrn Positive U Benzodiazepines Scrn Negative Urine Cocaine Screen Negative U Cannabinoids Screen Negative Orders Category Date Time Status Mental Health Consult [ED MENTAL HEALTH CONSULT] .ONCE EMERGENCY 05/10/18 00: 27 Active DRUG SCREEN, URINE, RAPID Stat LAB 05/10/18 00:00 Completed URINE Stat LAB 05/10/18 00:00 Completed Acetaminophen [Tylenol] MEDS 05/10/18 04:00 Discontinued 1,000 mg PO ONCE STA Medications Discontinued Medications Generic Name Dose Route Start Last Admin Trade Name Freq PRN Reason Stop Dose Admin Acetaminophen 1,000 mg 05/10/18 04:00 05/10/18 04:05 Tylenol PO 05/10/18 04:01 1,000 mg ONCE STA Administration Vital Signs: Temp Pulse Resp BP Pulse Ox 05/09/18 20:06 98.7 F 115 H 20 131/86 99 Departure - Departure Time of Disposition: 00:21 Disposition: HOME SELF-CARE Discharge Problem: Drug addict Instructions: Polysubstance Abuse (ED) Condition: Stable Pt referred to PMD for follow-up: Yes IPMP verified?: No Additional Instructions: Follow up with PCP in 3 days Follow up with your counsellor Allergies/Adverse Reactions: Allergies amoxicillin [Amoxicillin] Adverse Reaction (Verified 05/09/18 20:28) Hives Home Medications: Ambulatory Orders 1 [No Reported Medications] 01/18/18 Disposition Discussed With: Patient
[2018-05-10 00:42] LABS: URINE PREGNANCY TEST NEGATIVE (NEGATIVE)
[2018-05-10] MEDS ORDERED: TYLENOL PO STA (04:00)
== END 2018-05-10 09:55 | disposition home or self-care (01) ==
LOC: ED 20:05
DX: F15.20 Other stimulant dependence, uncomplicated (principal); F17.210 Nicotine dependence, cigarettes, uncomplicated; Z11.1 Encounter for screening for respiratory tuberculosis
CPT/HCPCS: 80306; 81025; 96372; 99284

== ENCOUNTER 2018-05-10 17:42 | Outpatient (CLI) ==
[2018-05-09 20:29] VITALS: BMI 22.4
[2018-05-10] MEDS ORDERED: TUBERSOL 10 TESTS ID STA (18:57)
[2018-05-10 19:05] VITALS: BP 106/74; TEMP 98.4
== END 2018-05-10 17:43 | disposition home or self-care (01) ==
LOC: OPMED 17:42
PROVIDERS: ATTEND General Practice
DX: Z11.1 Encounter for screening for respiratory tuberculosis (principal)
CPT/HCPCS: 96372

== ENCOUNTER 2018-11-03 01:32 | Emergency (ER) ==
[2018-11-03 01:42] VITALS: TEMP 98; BMI 21.4
[2018-11-03] MEDS ORDERED: TORADOL IM STA (01:58)
[2018-11-03 02:00] LABS: URINE PREGNANCY TEST NEGATIVE (NEGATIVE)
--- NOTE | 2018-11-03 02:40 | CT ---
EXAM: CT head without contrast 11/03/2018. Sagittal and coronal reformatted images obtained HISTORY: Headache COMPARISON: 01/18/2018 FINDINGS: There is no evidence of intracranial hemorrhage. The midline is maintained. There is no h ydrocephalus. No cerebellar tonsillar ectopia. Evaluation of the calvarium shows no fracture. Th e mastoid air cells are normally pneumatized. IMPRESSION: No acute intracranial abnormality.
--- NOTE | 2018-11-03 02:41 | DI ---
EXAM: Skull, four views, 11/03/2018 HISTORY: Headache. Scalp lesion COMPARISON: None. FINDINGS / IMPRESSION: The visualized skull structures appear intact. Anatomic alignment appears w ithin normal limits. There is no evidence of fracture or dislocation. No acute osseous abnormality.
--- NOTE | 2018-11-03 03:21 | ED.PDOC ---
General ED Provider: Dr. NATALIA MCNALLY-ER Chief Complaint: Headache Stated Complaint: rashid got a bump on my scalp--i showed it to dr monet--i think its causing me to have headache Time Seen by Physician: 01:40 Information Source: Patient Exam Limitations: No limitations Primary Care [facility] Nursing and Triage Documentation Reviewed and Agree: Yes Does patient meet sepsis criteria?: No System Inflammatory Response Syndrome: Not Applicable Sepsis Protocol: For patient's 13 years and over: Temp is 96.8 and below OR 101 and greater Pulse >90 BPM Resp >20/minute Acutely Altered Mental Status Are patient's symptoms suggestive of a new infection, such as: -Pneumonia -Skin, Soft Tissue -Endocarditis -UTI -Bone, Joint Infection -Implantable Device -Acute Abdominal Infection -Wound Infection -Meningitis -Blood Stream Catheter Infection -Unknown Neurological Complaint Exam - Headache Complaint/Exam Onset: Gradual Duration: several days Symptoms Are: Still present Timing: Constant Worst Headache Ever: No Initial Severity: Mild Current Severity: Mild Location: Diffuse Character: Reports: Dull, Pressure, Typical headache Aggravating: Reports: None Alleviating: Reports: None Associated Signs and Symptoms: Denies: Dizziness, Seizure, Nausea, Vomiting, Sinus pressure, Fever, Neck pain, Neck stiffness, Decreased LOC, Visual changes SAH Risk Factors: Reports: None Meningitis Risk Factors: Reports: None Temporal Arteritis Risk Factors: Reports: Female Normal Head CT Within Last 12 Months: Yes Fundoscopic Exam: Present: Normal Findings Papilledema Present: No Temporal Artery Tenderness: Present: None Sinus Tenderness: Present: None TMJ Tenderness: Present: None Glascow Coma Scale (see protocol): 15 Meningeal Signs Positive: No Pain on Passive Flexion-Positive Kernig's: No ROM Limited In: No Limitiations Focal Weakness: Present: None Focal Sensory Loss: Present: None Gait: Normal Nystagmus Present: No Gag Reflex Present: Yes [id number]: Normal Findings Romberg Test Positive: No Babinski Sign: Negative Right, Negative Left Heel to Toe Normal: Yes Differential Diagnoses: Tension Headache Review of Systems - Review Of Systems Constitutional: Reports: No symptoms Eyes: Reports: No symptoms Ears, Nose, Mouth, Throat: Reports: No symptoms Respiratory: Reports: No symptoms Cardiac: Reports: No symptoms GI: Reports: No symptoms : Reports: No symptoms Musculoskeletal: Reports: No symptoms Skin: Reports: No symptoms Neurological: Reports: Headache Endocrine: Reports: No symptoms Hematologic/Lymphatic: Reports: No symptoms All Other Systems: Reviewed and Negative Past Medical History - Past Medical History Previously Healthy: Yes Endocrine: Reports: None Cardiovascular: Reports: None Respiratory: Reports: None Hematological: Reports: None Gastrointestinal: Reports: None Genitourinary: Reports: UTI Neuro/Psych: Reports: Anxiety, Depression Musculoskeletal: Reports: None Cancer: Reports: None Last Menstrual Period: now Other Pertinent Past Medical History: Drug abuse - Surgical History General Surgical History: Reports: Cholecystectomy - Family History Family History: Reports: Unknown - Social History Smoking Status: Current every day smoker, Light tobacco smoker Hx Substance Use: Yes (Methamphea, not for past week) Alcohol Screening: None - Immunizations Tetanus Shot up to Date: Yes Physical Exam - Physical Exam Appearance: Well-appearing, No pain distress, Well-nourished Pain Distress: Mild Eyes: BENSON, EOMI, Conjunctiva clear ENT: Ears normal, Nose normal, Oropharynx normal Neck: Supple Respiratory: Airway patent Cardiovascular: RRR, Pulses normal, No rub, No murmur GI/: Soft, Nontender, No masses, Bowel sounds normal, No Organomegaly Musculoskeletal: Limited ROM Skin: Warm, Dry, Normal color Neurological: Sensation intact, Motor intact, Reflexes intact, Cranial nerves intact, Alert, Oriented Psychiatric: Affect appropriate, Mood appropriate Re-Evaluation - Re-Evaluation Time of Re-Evaluation: 03:23 Status: Improved Vital Signs Stable: Yes Pain Level: 1 Appearance: NAD Lungs: Clear Skin: Warm and Dry Neuro: Alert and Oriented X3 CV: RRR Additional Comments: rpeeat bp 125/85 Critical Care Note - Critical Care Note Total Time (mins): 0 Course - Course Hematology/Chemistry: 11/03/18 02:00 11/03/18 02:00 Orders, Labs, Meds: Lab Review 11/03/18 11/03/18 11/03/18 01:50 01:50 02:00 WBC 7.54 RBC 4.35 Hgb 12.4 Hct 37.2 MCV 85.5 MCH 28.5 MCHC 33.3 RDW Coeff of Otto 12.3 Plt Count 305 Immature Gran % (Auto) 0.3 Neut % (Auto) 51.9 Lymph % (Auto) 38.3 [place] % (Auto) 6.4 Eos % (Auto) 2.8 Baso % (Auto) 0.3 Immature Gran # (Auto) 0.0 Neut # (Auto) 3.9 Lymph # (Auto) 2.9 [place] # (Auto) 0.5 Eos # (Auto) 0.2 Baso # (Auto) 0.0 ESR Sodium Potassium Chloride Carbon Dioxide Anion Gap BUN Creatinine Estimated GFR (MDRD) BUN/Creatinine Ratio Glucose Calcium Total Bilirubin AST ALT Alkaline Phosphatase Total Protein Albumin Globulin Albumin/Globulin Ratio TSH Free T4 Urine Test Negative Urine Opiates Screen Negative Ur Oxycodone Screen Negative Urine Methadone Screen Negative Ur Propoxyphene Screen Negative Ur Barbiturates Screen Negative U Tricyclic Antidepress Negative Ur Phencyclidine Scrn Negative Ur Amphetamine Screen Positive U Methamphetamines Scrn Positive U Benzodiazepines Scrn Negative Urine Cocaine Screen Negative U Cannabinoids Screen Negative 11/03/18 11/03/18 11/03/18 02:00 02:00 02:00 WBC RBC Hgb Hct MCV MCH MCHC RDW Coeff of Otto Plt Count Immature Gran % (Auto) Neut % (Auto) Lymph % (Auto) [place] % (Auto) Eos % (Auto) Baso % (Auto) Immature Gran # (Auto) Neut # (Auto) Lymph # (Auto) [place] # (Auto) Eos # (Auto) Baso # (Auto) ESR 5 Sodium 140.6 Potassium 3.54 Chloride 103.6 Carbon Dioxide 29.5 Anion Gap 11.04 BUN 16.7 Creatinine 0.80 Estimated GFR (MDRD) 86.00 BUN/Creatinine Ratio 20.87 Glucose 80.4 Calcium 9.11 Total Bilirubin 0.76 AST 27.3 ALT 26.0 Alkaline Phosphatase 72.2 Total Protein 7.16 Albumin 4.15 Globulin 3.01 Albumin/Globulin Ratio 1.37 TSH 2.220 Free T4 1.19 Urine Test Urine Opiates Screen Ur Oxycodone Screen Urine Methadone Screen Ur Propoxyphene Screen Ur Barbiturates Screen U Tricyclic Antidepress Ur Phencyclidine Scrn Ur Amphetamine Screen U Methamphetamines Scrn U Benzodiazepines Scrn Urine Cocaine Screen U Cannabinoids Screen Orders Category Date Time Status CBC W/ AUTO DIFF Stat LAB 11/03/18 02:00 Completed COMPREHENSIVE METABOLIC PANEL Stat LAB 11/03/18 02:00 Completed ESR Stat LAB 11/03/18 02:00 Completed FREE T4 (FREE THYROXINE) Stat LAB 11/03/18 02:00 Completed TSH [THYROID STIMULATING HORMONE] Stat LAB 11/03/18 02:00 Completed URINE DRUG SCREEN (RAPID FOR ED) [DRUG SCREEN, URINE, LAB 11/03/18 01:50 Completed RAPID] Stat URINE Stat LAB 11/03/18 01:50 Completed Ketorolac Tromethamine [Toradol] MEDS 11/03/18 01:58 Discontinued 60 mg IM ONCE STA CT HEAD W/O CONTRAST Stat RADS 11/03/18 01:57 Completed SKULL, MIN 4 VIEWS Stat RADS 11/03/18 01:57 Completed Medications Discontinued Medications Generic Name Dose Route Start Last Admin Trade Name Freq PRN Reason Stop Dose Admin Ketorolac Tromethamine 60 mg 11/03/18 01:58 11/03/18 02:01 Toradol IM 11/03/18 01:59 60 mg ONCE STA Administration Vital Signs: Temp Pulse Resp BP Pulse Ox 11/03/18 02:48 66 20 135/96 H 100 11/03/18 01:33 98 F 79 16 114/78 98 Departure - Departure Time of Disposition: 03:23 Disposition: HOME SELF-CARE Discharge Problem: Headache Instructions: Tension Headache (ED) Condition: Good Pt referred to PMD for follow-up: Yes IPMP verified?: No Additional Instructions: f/u with dr monet--- Allergies/Adverse Reactions: Allergies amoxicillin [Amoxicillin] Adverse Reaction (Verified 11/03/18 01:43) Hives Home Medications: Ambulatory Orders 1 [No Reported Medications] 01/18/18 Disposition Discussed With: Patient
[2018-11-03 03:36] VITALS: BP 125/85
== END 2018-11-03 03:28 | disposition home or self-care (01) ==
LOC: ED 01:32
DX: R51 Headache (principal); F17.210 Nicotine dependence, cigarettes, uncomplicated
CPT/HCPCS: 36415; 80053; 80306; 81025; 84439; 84443; 85025; 85651; 96372; 99283